=== PATIENT | male | born 1960 | race Caucasian/White ===

== ENCOUNTER → 2018-03-07 | Outpatient (CLI) | payer OTHER ==
[~2018-03-07] MED LIST: ANAPROX DS550 MG PO; ASPIRIN ADULT L81 M1 PO; CLINDAMYCIN HC300 MG PO; DAYPRO600 M1 PO; FLAGYL500 MG PO; GLIPIZIDE; GLIPIZIDE ER2.5 MG PO; MOTRIN800 MG PO; Metformin Hydr500 MG PO; ONGLYZA5 MG PO; PHENERGAN25 M1 PO; ROBAXIN750 MG PO; SIMVASTATIN5 MG PO; THE MEDICINE S400 IU PO; ZOFRAN4 MG PO
== END | disposition home or self-care (01) ==
LOC: US 09:17
DX: R10.84 Generalized abdominal pain (principal)

== ENCOUNTER 2018-06-21 11:30 | Emergency (ER) | payer OTHER ==
[~2018-06-21] VITALS: Ht 175.2 cm; Wt 88.5 kg
[2018-06-21] MEDS ORDERED: CEPHALEXIN500 M1 PO (14:11)
[2018-06-21] MEDS ORDERED: SEPTDS PO (14:11)
== END 2018-06-21 14:33 | disposition home or self-care (01) ==
LOC: ED 11:30
DX: L02.412 Cutaneous abscess of left axilla (principal); Z88.0 Allergy status to penicillin; Z79.1 Long term (current) use of non-steroidal anti-inflammatories (NSAID); Z79.84 Long term (current) use of oral hypoglycemic drugs; Z79.82 Long term (current) use of aspirin

== ENCOUNTER 2019-05-30 14:28 | Emergency (ER) | payer OTHER ==
[~2019-05-30] VITALS: Ht 175.2 cm; Wt 90.7 kg
[~2019-05-30 14:28] MED LIST changes: +ALOGLIPTIN25 MG PO; +CEPHALEXIN500 M1 PO; +CLARITIN10 MG PO; +LANTUS SOL100 UNIT/1 SQ; +LEVOFLOXACIN500 MG PO; +LIPITOR40 MG PO; +LOSARTAN POTASS25 M1 PO; +METFORMIN HYD1000 MG PO; -Metformin Hydr500 MG PO; +NORVASC10 MG PO; +PREDNISONE10 MG PO; +SEPTDS PO; +VITAMIN B121000 MC1 PO; +VITAMIN D31000 UNI1 PO
== END 2019-05-30 17:46 | disposition short-term general hospital (02) ==
LOC: ED 14:28
DX: S61.305A Unspecified open wound of left ring finger with damage to nail, initial encounter (principal); E78.5 Hyperlipidemia, unspecified; E11.9 Type 2 diabetes mellitus without complications; Z87.891 Personal history of nicotine dependence; Z88.0 Allergy status to penicillin; Z79.2 Long term (current) use of antibiotics; Z79.899 Other long term (current) drug therapy; Z79.4 Long term (current) use of insulin; Z79.82 Long term (current) use of aspirin; W31.89XA Contact with other specified machinery, initial encounter; Y93.89 Activity, other specified; Y92.89 Other specified places as the place of occurrence of the external cause; Y99.8 Other external cause status

== ENCOUNTER 2019-05-31 11:11 | Emergency (ER) | payer OTHER ==
[~2019-05-31] VITALS: Ht 175.2 cm; Wt 90.7 kg
== END 2019-05-31 12:52 | disposition home or self-care (01) ==
LOC: ED 11:11
DX: S61.215D Laceration without foreign body of left ring finger without damage to nail, subsequent encounter (principal); E11.9 Type 2 diabetes mellitus without complications; E78.5 Hyperlipidemia, unspecified; Z88.0 Allergy status to penicillin; Z79.2 Long term (current) use of antibiotics; Z79.899 Other long term (current) drug therapy; Z87.891 Personal history of nicotine dependence; W23.0XXD Caught, crushed, jammed, or pinched between moving objects, subsequent encounter

== ENCOUNTER 2020-10-11 15:46 | Inpatient (IN) | payer OTHER ==
[~2020-10-11] VITALS: Ht 175.2 cm; Wt 93.4 kg
[2020-10-11 15:46] VITALS: BP 138/70
[~2020-10-11 15:46] MED LIST changes: -VITAMIN D31000 UNI1 PO; +VITAMIN D325 MCG PO
[2020-10-11 16:20] LABS: BASO # 0.1 10*3/uL (0.0-0.1); BASO % 0.3 % (0.0-1.0); EOS % 0.2 % (1.0-4.0); HEMATOCRIT 48.4 % (42.0-52.0); LYMPH # 0.7 10*3/uL (1.3-4.4); LYMPH % 4.2 % (27.0-41.0); MEAN CELL VOLUME 82.7 fl (80.0-94.0); MEAN CORPUSCULAR HGB 26.8 pg (27.0-31.0); MEAN CORPUSCULAR HGB CONC 32.4 g/dl (33.0-37.0); MEAN PLATELET VOLUME 10.6 fl (9.6-12.3); MONO # 1.2 10*3/uL (0.1-1.0); MONO % 6.9 % (3.0-9.0); NEUT # 15.6 10*3/uL (2.3-7.9); NEUT % 87.7 % (47.0-73.0); PLATELET COUNT AUTOMATED 253 10*3/uL (130-400); RED BLOOD COUNT 5.85 10*6/uL (4.50-5.90); RED CELL DISTRI WIDTH 12.9 % (0-14.5); WHITE BLOOD COUNT 17.8 10*3/uL (4.8-10.8)
[2020-10-11 16:32] LABS: ACT PARTIAL THROMBO TIME 24.5 SECONDS (20.0-32.1)
[2020-10-11 16:41] LABS: ALBUMIN 4.4 gm/dl (3.1-4.5); ALKALINE PHOSPHATASE 77 U/L (45-117); BUN 11 mg/dl (7-24); CHLORIDE 104 mmol/L (98-107); CREATININE 0.86 mg/dL (0.70-1.30); POTASSIUM 3.7 mmol/L (3.5-5.1); SGOT/AST 28 IU/L (3-35); SGPT/ALT 42 U/L (12-78); SODIUM 138 mmol/L (136-145); TOTAL PROTEIN 7.8 gm/dL (6.4-8.2)
[2020-10-11 16:42] LABS: TROPONIN I 0.023 ng/ml (<0.045)
[2020-10-11 17:10] VITALS: BP 144/75
[2020-10-11 17:12] LABS: BILIRUBIN Negative (Negative); BLOOD Trace-Lysed (Negative); CLARITY Clear (Clear); COLOR Yellow (Yellow); GLUCOSE 3+ (Negative); KETONE Trace (Negative); LEUKO ESTERASE Negative (Negative); NITRITE Negative (Negative); SPECIFIC GRAVITY 1.025 (1.001-1.030); UROBILINOGEN 0.2 E.U./dl (0.0-1.0)
[2020-10-11 17:22] LABS: BACTERIA TRACE; EPITHELIAL CELLS 0-2; MUCOUS 1+; WBC 0-2 wbc/hpf (0-5)
[2020-10-11 20:55] VITALS: BP 139/79
[2020-10-11 22:31] VITALS: BP 140/68
[2020-10-12 00:20] VITALS: BP 140/69
[2020-10-12 04:00] VITALS: BP 138/72
[2020-10-12 06:05] LABS: ALBUMIN 3.8 gm/dl (3.1-4.5); ALKALINE PHOSPHATASE 66 U/L (45-117); BUN 14 mg/dl (7-24); CHLORIDE 106 mmol/L (98-107); CHOLESTEROL 109 mg/dL (<200); CREATININE 0.82 mg/dL (0.70-1.30); HDL CHOLESTEROL 38 mg/dl (40-60); LDL CHOLESTEROL 55 mg/dL (9-159); POTASSIUM 3.4 mmol/L (3.5-5.1); SGOT/AST 40 IU/L (3-35); SGPT/ALT 39 U/L (12-78); SODIUM 141 mmol/L (136-145); TOTAL PROTEIN 6.8 gm/dL (6.4-8.2); TRIGLYCERIDES 81 mg/dl (<150); VLDL CHOLESTEROL 16 mg/dL (6-40)
[2020-10-12 06:15] LABS: BASO # 0.1 10*3/uL (0.0-0.1); BASO % 0.5 % (0.0-1.0); EOS # 0.1 10*3/uL (0.0-0.4); EOS % 0.7 % (1.0-4.0); HEMATOCRIT 44.9 % (42.0-52.0); LYMPH # 1.3 10*3/uL (1.3-4.4); MEAN CELL VOLUME 83.6 fl (80.0-94.0); MEAN CORPUSCULAR HGB 26.4 pg (27.0-31.0); MEAN CORPUSCULAR HGB CONC 31.6 g/dl (33.0-37.0); MEAN PLATELET VOLUME 11.7 fl (9.6-12.3); NEUT # 8.3 10*3/uL (2.3-7.9); NEUT % 77.3 % (47.0-73.0); PLATELET COUNT AUTOMATED 236 10*3/uL (130-400); RED BLOOD COUNT 5.37 10*6/uL (4.50-5.90); RED CELL DISTRI WIDTH 13.3 % (0-14.5); WHITE BLOOD COUNT 10.7 10*3/uL (4.8-10.8)
[2020-10-12 07:05] LABS: VITAMIN D, 25-HYDROXY 34.7 ng/mL (30-100)
[2020-10-12 08:00] VITALS: BP 114/73
[2020-10-12] MEDS ORDERED: HYDR25T PO (08:22)
[2020-10-12] MEDS ORDERED: 24 HOUR ALLERG9.9 ML NAS (08:22)
[2020-10-12] MEDS ORDERED: JARDIANCE25 MG PO (08:23)
[2020-10-12 15:00] VITALS: BP 120/76
[2020-10-12 20:00] VITALS: BP 140/67
[2020-10-13] VITALS: BP 121/67
[2020-10-13 08:00] VITALS: BP 132/54
[2020-10-13 08:34] LABS: BUN 19 mg/dl (7-24); CHLORIDE 102 mmol/L (98-107); CREATININE 0.88 mg/dL (0.70-1.30); POTASSIUM 4.2 mmol/L (3.5-5.1); SODIUM 135 mmol/L (136-145)
[2020-10-13 12:00] VITALS: BP 110/73
[2020-10-13 16:00] VITALS: BP 125/80
[2020-10-13 20:00] VITALS: BP 171/84
[2020-10-13 21:00] VITALS: BP 140/86
[2020-10-14] VITALS: BP 127/75
[2020-10-14 07:31] LABS: BUN 21 mg/dl (7-24); CHLORIDE 102 mmol/L (98-107); CREATININE 0.78 mg/dL (0.70-1.30); POTASSIUM 4.1 mmol/L (3.5-5.1); SODIUM 135 mmol/L (136-145)
[2020-10-14 08:00] VITALS: BP 136/82
[2020-10-14 12:00] VITALS: BP 132/80
[2020-10-14] MEDS ORDERED: Percocet 325 MG1 TAB PO (15:59)
[2020-10-14 16:07] VITALS: BP 121/92
== END 2020-10-14 20:09 | disposition home or self-care (01) | DRG 551 ==
LOC: ED 15:46 → 4E 21:47 → EDHOLD 21:47 → 4E 10-12 13:32
PROVIDERS: Emergency Medicine; Family Medicine; Internal Medicine; ADMIT Emergency Medicine; ATTEND Emergency Medicine
DX: S22.020A Wedge compression fracture of second thoracic vertebra, initial encounter for closed fracture (principal); E11.641 Type 2 diabetes mellitus with hypoglycemia with coma; R65.10 Systemic inflammatory response syndrome (SIRS) of non-infectious origin without acute organ dysfunction; E87.2 Acidosis; J98.11 Atelectasis; M85.80 Other specified disorders of bone density and structure, unspecified site; V89.2XXA Person injured in unspecified motor-vehicle accident, traffic, initial encounter; R81 Glycosuria; R09.89 Other specified symptoms and signs involving the circulatory and respiratory systems; E78.5 Hyperlipidemia, unspecified; Z20.822 Contact with and (suspected) exposure to COVID-19; E55.9 Vitamin D deficiency, unspecified; I10 Essential (primary) hypertension; Z79.4 Long term (current) use of insulin; Y93.89 Activity, other specified; Y92.89 Other specified places as the place of occurrence of the external cause; Y99.8 Other external cause status; Z88.0 Allergy status to penicillin; Z79.899 Other long term (current) drug therapy; Z86.73 Personal history of transient ischemic attack (TIA), and cerebral infarction without residual deficits